=== PATIENT | male | born 1960 | race Caucasian/White ===

== ENCOUNTER 2020-11-29 13:10 | Emergency (ER) | payer BC, SELFPAY ==
[2020-11-29 13:16] VITALS: BP 198/90; PULSE 87; RESP 19; TEMP 36.8; O2SAT 99
[2020-11-29 13:38] LABS: Basophils Percent Auto 0.3 % (0.2-1.2); Eosinophils Absolute Auto 0.2 K/mm3 (0-0.3); Eosinophils Percent Auto 2.6 % (0-4.4); Hemoglobin 13.8 g/dL (14.0-18.0); Immature Granulocyte Absolute 0.03 K/mm3 (0.00-0.031); Immature Granulocyte Percent A 0.4 % (0-0.5); Lymphocytes Absolute Auto 1.72 K/mm3 (0.9-3.2); Lymphocytes Percent Auto 24.7 % (18.3-44.2); Mean Corpuscular HGB Conc 33.7 g/dl (32-36); Mean Corpuscular Volume 86.1 fl (80-100); Mean Platelet Volume 8.7 fl (7.4-10.4); Monocytes Absolute Auto 0.6 K/mm3 (0.1-0.6); Monocytes Percent Auto 8.2 % (2.6-8.5); Neutrophils Absolute Auto 4.4 K/mm3 (1.3-6.7); Neutrophils Percent Auto 63.8 % (45.5-73.1); Platelet Count Result 254 k/mm3 (150-375); Red Blood Count 4.76 M/mm3 (4.6-6.20)
[2020-11-29 13:53] LABS: Add Urine Microscopic? NO; Appearance Urine Clear (Clear); Bilirubin Urine Negative (Negative); Blood Urine Negative (Negative); Color Urine Straw (Yellow); Glucose Urine UA Negative (Negative); Ketones Urine Negative (Negative); Leukocyte Esterase Ur Negative LEU/UL (Negative); Nitrate Urine Negative (Negative); Protein Urine Negative (Negative); Specific Grav Ur 1.009 (1.001-1.035); Urobilinogen Urine Negative mg/dL (<2.0)
[2020-11-29 13:54] LABS: Ethanol < 10 mg/dL (<10)
[2020-11-29 13:56] LABS: Alanine Aminotransferase 26 U/L (4-50); Albumin Level 4.6 g/dL (3.5-5.1); Alkaline Phosphatase 67 U/L (38-126); Anion Gap 13 mmol/L (8-16); Aspartate Amino Transferase 26 U/L (17-59); Bilirubin,Total 0.5 mg/dL (0.2-1.3); Blood Urea Nitrogen 23 mg/dL (9-20); Calcium 9.6 mg/dL (8.4-10.2); Carbon Dioxide 20 mmol/L (22-30); Chloride 110 mmol/L (98-107); Estimated CRCL calculation 109 ml/min; Estimated Glomerular Filt Rate > 60; Glucose 88 mg/dL (75-110); Potassium 3.8 mmol/L (3.4-5.0); Sodium 143 mmol/L (137-145)
[2020-11-29 14:13] LABS: Amphetamine Screen Urine Negative (Negative); Barbiturate Screen Urine Negative (Negative); Benzodiazepines Screen Urine Negative (Negative); Cannabinoid Screen Urine Negative (Negative); Cocaine Screen Urine Negative (Negative); Methadone Screen Urine Negative (Negative); Opiate Screen Urine Negative (Negative); Phencyclidine Screen Urine Negative (Negative)
[2020-11-29 14:39] VITALS: BP 144/87; PULSE 76; RESP 18; O2SAT 97
--- NOTE | 2020-11-29 14:58 | ED.PSYCH ---
HPI - Psych General Chief Complaint: Psychiatric Symptoms <Keenan Espinoza MD - Last Filed: 11/29/20 16:50> Stated Complaint: mental crisis, SI <Keenan Espinoza MD - Last Filed: 11/29/20 16:50> Time Seen by Provider: 11/29/20 14:49 <Keenan Espinoza MD - Last Filed: 11/29/20 16:50> Source: patient and family <Keenan Espinoza MD - Last Filed: 11/29/20 16:50> Limitations: no limitations <Keenan Espinoza MD - Last Filed: 11/29/20 16:50> History of Present Illness HPI Narrative: Patient is 60 years old white male brought to the emergency room by his because of suicidal ideation. Patient reports increased level of stress over the last few months. Today was out of control. Patient been thinking about killing himself for the last few days. Today hold a knife and was thinking about killing himself then called his for help. Patient denying history of suicidal ideation or depression in the past. Sister had history of depression. Patient does not smoke , drinks 3-4 times a week, denies any drug use or abuse. Patient denies any fever, chills, nausea, vomiting, chest pain, shortness of breath, headache.. Patient been having insomnia for the last few weeks unable to sleep 3 hours in a row. Patient was able to get to bed, 2 hours work-up and unable to go back to bed again. <Keenan Espinoza MD - Last Filed: 11/29/20 16:50> Related Data Allergies/Adverse Reactions: Allergies Allergy/AdvReac Type Severity Reaction Status Date / Time No Known Allergies Allergy Verified 11/29/20 14:03 <Keenan Espinoza MD - Last Filed: 11/29/20 16:50> Review of Systems Review of Systems: Narrative: CONSTITUTIONAL: Denies fever, chills, or sweats. EYES: Denies visual changes, redness, or discharge. ENT: Denies rhinorrhea, congestion, sore throat, or otalgia. CARDIOVASCULAR: Denies chest pain, palpitations, or edema. RESPIRATORY: Denies cough or dyspnea. GASTROINTESTINAL: Denies abdominal pain, nausea, vomiting, or diarrhea. GENITOURINARY: Denies dysuria or hematuria. SKIN: Denies rash or itching. MUSCULOSKELETAL: Denies back pain, joint pain, or myalgia. NEUROLOGIC: Denies headache, numbness, or weakness. PSYCHIATRIC: Denies anxiety or depression. <Keenan Espinoza MD - Last Filed: 11/29/20 16:50> PMFSH Family History Family History: Family History Father Hypertension Family history of hypercholesterolemia Sibling Carcinoma of colon, Onset Age: 47 Other Family history of pancreatic cancer <Keenan Espinoza MD - Last Filed: 11/29/20 16:50> Social History Social History: Social History Smoking status: Never smoker Second hand tobacco smoke exposure: No Alcohol intake: current Substance use type: does not use Gender identity (if verbalized by the patient): Male <Keenan Espinoza MD - Last Filed: 11/29/20 16:50> Exam Narrative: Exam Narrative: General appearance: Well-developed, well-nourished, looks depressed, at the bedside Skin: Normal color Head: Normocephalic, nontraumatic Eyes: Clear conjunctiva ENT: Oropharynx normal, ears normal, nose normal Neck: Supple, nontender Chest and respiratory: Airway patent, no respiratory distress, no accessory muscle use Heart: Regular rate/rhythm Abdomen: Soft, nontender, no organomegaly, quiet bowel sounds Vascular: Normal peripheral pulses, normal capillary refill. Musculoskeletal: Normal range of motion, nontender back Neurologic: Alert and oriented ?3, [employer] is normal as tested, no gross motor deficit <Keenan Espinoza MD - Last Filed: 11/29/20 16:50> Course
[2020-11-29 15:11] LABS: EDCOVIDSCREEN Negative (Negative)
[2020-11-29] MEDS: LORazepam (*CRX) 0.5 MG TABLET 1 MG PO (15:19)
--- NOTE | 2020-11-29 19:26 | PC.NURSE ---
Emy from [facility] in [place] called for placement for the patient. I faxed over the patients chart and she called and is speaking with the pt currently.
--- NOTE | 2020-11-29 20:30 | PC.NURSE ---
Kade serrano [place] called for information on pt placement.
--- NOTE | 2020-11-29 21:00 | PC.NURSE ---
[facility] accepted pt for placement.
--- NOTE | 2020-11-29 21:22 | PC.NURSE ---
Called for transport for Pt to [place].
[2020-11-29 22:00] VITALS: BP 136/95; PULSE 71; RESP 16; TEMP 36.7; O2SAT 98
[2020-11-30 02:00] VITALS: BP 126/78; PULSE 88; RESP 20; O2SAT 99
== END 2020-11-30 02:00 ==
PROVIDERS: Emergency Provider Emergency Medicine; PCP Family Medicine
DX: R45.851 Suicidal ideations (principal); F32.9 Major depressive disorder, single episode, unspecified; Z20.822 Contact with and (suspected) exposure to COVID-19
CPT/HCPCS: 36415; 80053; 80307; 81003; 84443; 85025; 87426; 99285; A9270; C9803

== ENCOUNTER 2025-01-18 09:18 | Emergency (ER) | payer BC, SELFPAY ==
[2025-01-18 09:32] VITALS: BP 143/77; PULSE 92; RESP 16; TEMP 37; O2SAT 99
--- NOTE | 2025-01-18 10:26 | ED.GENADULT ---
HPI - General Adult General Chief complaint: Ear Stated complaint: fever/ear irritation Source: patient Mode of arrival: ambulatory Limitations: no limitations History of Present Illness HPI narrative: Patient presents for evaluation of several symptoms. His primary concern is regarding sick symptoms that he experienced 4 days ago. He initially had body aches and then developed fever and chills. Also experienced diarrhea and nausea without vomiting. He went to [facility] and tested negative for COVID and flu. He was also given IVF. He states his symptoms persist. He now has pain and swelling to the auricle of the right ear. He spends time outdoors and finds ticks from time to time on his skin. He did not actually visualize one in the area of the ear swelling. Related Data Allergies Allergy/AdvReac Type Severity Reaction Status Date / Time No Known Allergies Allergy Verified 01/18/25 09:39 Review of Systems Review of Systems: CONSTITUTIONAL: reports fever and chills EYES: Denies visual changes, redness, or discharge. ENT: Reports right-sided ear pain and swelling CARDIOVASCULAR: Denies chest pain, palpitations, or edema. RESPIRATORY: Denies cough or dyspnea. GASTROINTESTINAL: reports recent diarrhea, none currently. Reports nausea without vomiting. GENITOURINARY: Denies dysuria or hematuria. SKIN: reports redness to the right ear MUSCULOSKELETAL: reports generalized body aches NEUROLOGIC: Denies headache, numbness, dizziness, or weakness. PSYCHIATRIC: Denies anxiety or depression. PMFSH Past Medical History Medical History No pertinent past medical history Surgical History Surgical History (Updated 01/18/25 @ 10:32 by Hilario Grider, BULLDOZER ENGINEER, ) No pertinent past surgical history Family History Family History Father Hypertension Family history of hypercholesterolemia Sibling Carcinoma of colon, Onset Age: 47 Other Family history of pancreatic cancer Social History Social History Smoking status: Never smoker Second hand tobacco smoke exposure: No Alcohol intake: current Substance use type: does not use Gender identity (if verbalized by the patient): Male Exam Narrative: GENERAL: Well-appearing, well-nourished, and in no acute distress. HEAD: Normocephalic, atraumatic. EYES: PERRLA and EOMI. ENT: Nares clear, no rhinorrhea or epistaxis. Mucous membranes moist. Oropharynx without tonsillar hypertrophy exudate or other lesions. Bilateral TMs pearly bull nonbulging NECK: Supple. No adenopathy or masses. No carotid bruits or JVD CHEST: Clear to auscultation. No respiratory distress. No wheezes rales or rhonchi HEART: Regular rate and rhythm. No murmur heard. Normal peripheral pulses. ABDOMEN: Soft, nontender, nondistended, normal active bowel sounds. EXTREMITIES: Normal range of motion. No edema. SKIN: There is an approximately 1 cm scabbed lesion to the fossa of helix of right ear. The helix and antihelix are erythematous and edematous NEURO: No focal deficits. Alert and oriented x3. PSYCH: Normal mood and affect. Course Course Emergency Course: This is a 64-year-old male who presented for evaluation of several concerns. His body aches, fever and diarrhea seem viral in origin. He will ready saw provider [facility] and had negative COVID and flu testing. He does have evidence of perichondritis on exam. Will treat with Levaquin but will add doxycycline as he is exposed to ticks frequently. Will also dc with paper script for lomotil as it would not send electronically. He should follow-up with his primary care provider and go to the ER for worsening symptoms. Patient in agreement with plan of care. Level of Care: Express Care Visit Vital Signs Vital signs: Vital Signs Temperature 37.0 C 01/18/25 09:32 Pulse Rate 92 01/18/25 09:32 Respiratory Rate 16 01/18/25 09:32 Blood Pressure 143/77 H 01/18/25 09:32 Pulse Oximetry 99 01/18/25 09:32 Oxygen Delivery Room Air 01/18/25 09:32 Temperature 37.0 C 01/18/25 09:32 Pulse Rate 92 01/18/25 09:32 Respiratory Rate 16 01/18/25 09:32 Blood Pressure 143/77 H 01/18/25 09:32 Pulse Oximetry 99 01/18/25 09:32 Oxygen Delivery Room Air 01/18/25 09:32 Medical Decision Making Vital Signs Vital Signs: Vital Signs Temperature 37.0 C 01/18/25 09:32 Pulse Rate 92 01/18/25 09:32 Respiratory Rate 16 01/18/25 09:32 Blood Pressure 143/77 H 01/18/25 09:32 Pulse Oximetry 99 01/18/25 09:32 Oxygen Delivery Room Air 01/18/25 09:32 Temperature 37.0 C 01/18/25 09:32 Pulse Rate 92 01/18/25 09:32 Respiratory Rate 16 01/18/25 09:32 Blood Pressure 143/77 H 01/18/25 09:32 Pulse Oximetry 99 01/18/25 09:32 Oxygen Delivery Room Air 01/18/25 09:32 Discharge Plan Discharge Clinical Impression: Perichondritis, Diarrhea Patient Disposition: Home Condition: Stable Instructions: Antibiotic Form, Ear Infection (ED), Acute Diarrhea (ED) Patient Language: Armenian Prescriptions: New levofloxacin 750 mg tablet 750 mg PO DAILY Qty: 10 0RF doxycycline hyclate 100 mg capsule 100 mg PO BID 14 Days Qty: 28 0RF No Action gemfibrozil 600 mg tablet 600 mg PO BID Qty: 180 3RF lisinopril 20 mg tablet 20 mg PO DAILY Qty: 90 0RF Rx Instructions: call office to schedule annual check up - past due simvastatin 20 mg tablet 20 mg PO DAILY Qty: 90 0RF Rx Instructions: must call office to make yearly appt for anymore refills Follow-up/Referrals: Jhonny,ZACHARIAH Louise [Primary Care Provider] - Stand Alone Forms: Work/School Release IP Time of Disposition: 10:24
== END 2025-01-18 10:32 | disposition home or self-care (01) ==
PROVIDERS: Emergency Provider Nurse Practitioner; PCP Nurse Practitioner Family
DX: H61.001 Unspecified perichondritis of right external ear (principal); R19.7 Diarrhea, unspecified
CPT/HCPCS: 99213; G0463

== ENCOUNTER 2025-02-11 18:18 | Emergency (ER) | payer BC, SELFPAY ==
--- NOTE | ~2025-02-11 | XR_ITS ---
EXAMINATION: XR chest 2V DATE: 02/11/2025 19:01 INDICATION: Asthma presenting with a few days of cough TECHNIQUE: PA and lateral views of the chest were obtained. COMPARISON: None FINDINGS: Mild linear discoid atelectasis/scarring at the anterior lung base on the lateral projection. No other airspace opacities, pulmonary edema, pleural effusion or pneumothorax. The cardiomediastinal silhouette is normal. Moderate thoracic spondylosis. IMPRESSION: 1. Minimal basilar atelectasis. No other acute cardiopulmonary disease. Reviewed, dictated and finalized at location A.
[2025-02-11 18:28] VITALS: BP 167/84; PULSE 62; RESP 16; TEMP 37.3; O2SAT 97
[2025-02-11 18:38] LABS: EDCOVIDSCREEN Positive (Negative)
[2025-02-11 18:39] LABS: EDINFLUASCREEN Negative (Negative); EDINFLUBSCREEN Negative (Negative)
--- NOTE | 2025-02-11 18:44 | ED.URI ---
HPI - URI/Sore Throat General Chief Complaint: Upper Respiratory Infection Stated Complaint: Sore throat / Cough / Head Pain Time Seen by Provider: 02/11/25 18:50 Source: patient and RN notes reviewed Mode of arrival: ambulatory Limitations: no limitations History of Present Illness HPI Narrative: 64-year-old male presents with concern for 2 day history of nasal congestion, cough, sore throat headaches. Reports exposure to COVID. He has not taken any medications for his symptoms. MD elicited complaint: cough and sore throat Related Data Home Medications ?Medication ?Instructions ?Recorded ?Confirmed ?Last Taken ?Type losartan 100 mg tablet mg 02/11/25 Unknown History Allergies Allergy/AdvReac Type Severity Reaction Status Date / Time No Known Allergies Allergy Verified 02/11/25 18:26 Review of Systems Review of Systems: CONSTITUTIONAL: Reports malaise your denies chills, sweats, or fever. EYES: Denies visual changes, redness, or discharge. ENT: Reports rhinorrhea, congestion, and sore throat. CARDIOVASCULAR: Denies chest pain, palpitations, or edema. RESPIRATORY: Reports cough. Denies dyspnea. GASTROINTESTINAL: Denies abdominal pain, nausea, vomiting, diarrhea SKIN: Denies rash or itching. MUSCULOSKELETAL: Denies myalgia. NEUROLOGIC: Reports headache. All systems reviewed & are unremarkable except as noted in HPI and below PMFSH Past Medical History Medical History (Updated 02/11/25 @ 19:35 by Sybil Pink NP) No pertinent past medical history Surgical History Surgical History (Updated 01/18/25 @ 10:32 by Hilario Grider, FENCE POST CUTTER, ) No pertinent past surgical history Family History Family History Father Hypertension Family history of hypercholesterolemia Sibling Carcinoma of colon, Onset Age: 47 Other Family history of pancreatic cancer Social History Social History Smoking status: Never smoker Second hand tobacco smoke exposure: No Alcohol intake: current Substance use type: does not use Gender identity (if verbalized by the patient): Male Comments At time of signature, agree with nursing past medical, surgical, social and family history. There is no relevant family history pertinent to the presenting complaint Exam Narrative: GENERAL: Well-appearing, well-nourished, and in no acute distress. HEAD: Normocephalic EYES: PERRLA, conjunctivae clear ENT: Nares clear. Mucous membranes moist. TM pearly bull with dull light reflex bilaterally; no tragal tenderness. Oropharynx not erythematous without lesions. Tonsils not enlarged and without exudate, no drooling, no hoarseness, no trismus, uvula midline. NECK: Supple. No lymphadenopathy CHEST: Scattered rhonchi, diminished on the left. No wheezing, rales, or stridor. No respiratory distress, speaks in full sentences. HEART: Regular rate and rhythm. No murmur heard. SKIN: Warm, dry, no rash. NEURO: Alert and oriented x3. PSYCH: Normal mood and affect Course Course Emergency Course: Patient is aware of diagnosis, understands and agrees to treatment plan. Anticipatory guidance given. Patient agrees to follow-up as directed and is aware of reasons to seek care at the emergency department. Portions of this record may have been created with voice recognition software Level of Care: Express Care Visit Vital Signs Vital signs: Vital Signs Temperature 99.2 F 02/11/25 18:28 Pulse Rate 62 02/11/25 18:28 Respiratory Rate 16 02/11/25 18:28 Blood Pressure 167/84 H 02/11/25 18:28 Pulse Oximetry 97 02/11/25 18:28 Oxygen Delivery Room Air 02/11/25 18:28 Temperature 99.2 F 02/11/25 18:28 Pulse Rate 62 02/11/25 18:28 Respiratory Rate 16 02/11/25 18:28 Blood Pressure 167/84 H 02/11/25 18:28 Pulse Oximetry 97 02/11/25 18:28 Oxygen Delivery Room Air 02/11/25 18:28 Reviewed. MDM - URI/Sore Throat MDM Narrative Medical decision making narrative: Differential diagnosis considered: Haynes virus, strep pharyngitis, allergic rhinitis, upper respiratory tract infection, sinusitis, rhinosinusitis, nasopharyngitis. viral pharyngitis, otitis media, otitis externa, pneumonia, bronchitis, viral cough syndrome, viral syndrome, and influenza. Exam findings show no acute concerns or changes; patient is non-toxic appearing and is in no distress. Patient is appropriate for outpatient treatment and follow-up. Lab Data Attestation: I reviewed the patient's lab results. Labs: Lab Results 02/11/25 Range/Units 18:34 POC Influenza A Ag Negative (Negative) POC Influenza B Ag Negative (Negative) POC SARS CoV-2 Ag Positive (Negative) Critical Care Time Critical Care Time Critical Care Time: No Discharge Plan Discharge Clinical Impression: COVID, Atelectasis of both lungs Patient Disposition: Home Condition: Stable Instructions: Antibiotic Form, How to Recover from COVID-19 at Home (ED) Additional Instructions: Your rapid COVID test is positive. COVID is a virus, antibiotics are not effective against viruses. Your body has to kill viruses. ? Stay home when you are sick, except to get medical care. ? Stay home until your symptoms are resolving and you haven't had a fever for 24 hours. ? If you are self isolating at home where others live, use a separate room and bathroom for sick household members (if possible). Clean any shared rooms as needed, to avoid transmitting the virus. ? Wash your hands often with soap and water for at least 20 seconds, especially after blowing your nose, coughing, or sneezing; going to the bathroom; and before eating or preparing food. ? If soap and water are not available, use an alcohol-based hand business data analyst with at least 60% alcohol. ? Have a supply of clean, disposable face masks. Everyone, no matter their COVID diagnosis, should wear face masks while in the home. - Over the counter medications such as Tylenol every 4 hours, ibuprofen every 6 hours (you can alternate these for maximum effect), Mucinex DM for cough, and psuedoephedrine (you must ask the pharmacist for this) can help relieve symptoms while your body fights off the virus. Watch for symptoms and learn when to seek emergency medical attention. If someone is showing any of these signs, seek emergency medical care immediately: ? Trouble breathing ? Persistent chest pain/pressure ? Confusion ? Inability to wake or stay awake ? Bluish lips or face Call 911 or call ahead to your local emergency room: Notify the leather stripping machine operator that you are seeking care for someone who has or may have COVID Patient Language: German Prescriptions: New azithromycin [Zithromax Z-Butch] 250 mg tablet See Rx Instructions .ROUTE .COMPLEX Qty: 6 0RF Rx Instructions: take 500 mg today (day 1), then 250 mg for 4 days (days 2-5) No Action losartan 100 mg tablet gemfibrozil 600 mg tablet 600 mg PO BID Qty: 180 3RF lisinopril 20 mg tablet 20 mg PO DAILY Qty: 90 0RF Rx Instructions: call office to schedule annual check up - past due simvastatin 20 mg tablet 20 mg PO DAILY Qty: 90 0RF Rx Instructions: must call office to make yearly appt for anymore refills Follow-up/Referrals: PHYSICIAN,OUTREACH ASSISTANT [Primary Care Provider, Internal Medicine] Stand Alone Forms: Work/School Release IP Time of Disposition: 19:36
== END 2025-02-11 19:40 | disposition home or self-care (01) ==
PROVIDERS: Emergency Provider Nurse Practitioner
DX: U07.1 COVID-19 (principal); J98.11 Atelectasis
CPT/HCPCS: 71046; 87426; 87804; 99213; G0463